=== PATIENT | female | born 1995 | race Caucasian/White ===

== ENCOUNTER 2019-04-20 09:13 | Emergency (ER) | payer OTHER ==
[~2019-04-20] VITALS: Ht 170.2 cm; Wt 79.5 kg
[~2019-04-20 09:13] MED LIST: CEPH500 PO; COMP10 PO; FOLI1 PO; ONDA-104 PO; PNV1TAB.3 PO; PYRI200T10 PO
[2019-04-20] MEDS ORDERED: BUPR150SR PO (09:23)
[2019-04-20] MEDS ORDERED: IPRA4AER IH (09:23)
[2019-04-20] MEDS ORDERED: PRAZ5 PO (09:23)
[2019-04-20] MEDS ORDERED: LITH600 PO (09:23)
[2019-04-20] MEDS ORDERED: ONDANSETRON HCL 4 MG/2 ML VIAL IVP ONE (09:45)
[2019-04-20] MEDS ORDERED: SODIUM CHLORIDE 0.9% 1,000 ML IV ONE (09:45)
[2019-04-20 10:00] LABS: BASOPHILS % (AUTO) 0.3 % (0.0-2.0); EOSINOPHILS % (AUTO) 0.4 % (1.0-6.0); HEMATOCRIT 45.8 % (36-46); HEMOGLOBIN 14.9 g/dL (12.0-16.0); LYMPHOCYTES # (AUTO) 1.6 K/uL (1.0-4.8); LYMPHOCYTES % (AUTO) 14.3 % (22.0-44.0); MEAN CORPUSCULAR HEMOGLOBIN 28.7 pg (26.0-34.0); MEAN CORPUSCULAR HGB CONC 32.6 G/dL (31.0-37.0); MEAN CORPUSCULAR VOLUME 88 fL (80-100); MONOCYTES # (AUTO) 0.6 K/uL (0.1-1.0); MONOCYTES % (AUTO) 5.2 % (2.0-9.0); NEUTROPHILS # (AUTO) 8.8 K/uL (1.8-7.7); NEUTROPHILS % (AUTO) 79.8 % (40.0-70.0); PLATELET COUNT (AUTO) 270 K/uL (150-450); RED CELL DISTRIBUTION WIDTH 14.1 % (11.5-14.5)
[2019-04-20 10:10] LABS: ANION GAP 10 mmol/L (8-16); CALCIUM, TOTAL 10.2 mg/dL (8.8-10.5); CARBON DIOXIDE 28 mmol/L (22-29); CHLORIDE 102 mmol/L (98-107); CREATININE 0.96 mg/dL (0.60-1.30); GLOMERULAR FILTR. RATE CALC > 60 mL/min (>60); GLUCOSE,RANDOM 87 mg/dL (70-110); POTASSIUM 3.9 mmol/L (3.5-5.1); SODIUM SERUM 140 mmol/L (136-145); UREA NITROGEN, BLOOD 10 mg/dL (7-18)
[2019-04-20] MEDS ORDERED: PANTOPRAZOLE SODIUM 40 MG/VIAL IVP ONE (10:15)
[2019-04-20 10:16] LABS: ALANINE AMINOTRANSFERASE 18 U/L (12-78); ALBUMIN 4.7 g/dL (3.4-5.0); ALKALINE PHOSPHATASE 75 U/L (46-116); ASPARTATE AMINOTRANSFERASE 10 U/L (15-37); BILIRUBIN,TOTAL 0.9 mg/dL (0.1-1.0); LIPASE 95 U/L (73-393); TOTAL PROTEIN, SERUM 8.7 g/dL (6.4-8.2)
[2019-04-20 11:36] LABS: APPEARANCE,URINE CLOUDY (CLEAR); BILIRUBIN,URINE NEGATIVE (NEGATIVE); GLUCOSE, URINE (UA) NEGATIVE (NEGATIVE); KETONES,URINE TRACE mg/dL (NEGATIVE); LEUKOCYTE ESTERASE ,URINE LARGE (NEGATIVE); NITRATE,URINE NEGATIVE (NEGATIVE); OCCULT BLOOD,URINE NEGATIVE (NEGATIVE); PROTEIN,URINE TRACE (NEGATIVE)
[2019-04-20 11:45] LABS: RBC,URINE 0-2 /HPF (0-2)
[2019-04-20 11:46] LABS: BACTERIA,URINE Few /HPF (None Seen); SQUAMOUS EPITHELIAL CELL,UR Moderate /LPF (None Seen)
[2019-04-20 12:33] VITALS: BP 120/65
== END 2019-04-20 12:35 | disposition home or self-care (01) ==
LOC: EMS 09:16
DX: K52.9 Noninfective gastroenteritis and colitis, unspecified (principal); N39.0 Urinary tract infection, site not specified; F31.9 Bipolar disorder, unspecified; J45.909 Unspecified asthma, uncomplicated; F12.90 Cannabis use, unspecified, uncomplicated; Z88.8 Allergy status to other drugs, medicaments and biological substances; Z79.899 Other long term (current) drug therapy
CPT/HCPCS: 36415; 74018; 80053; 80178; 81001; 83690; 84703; 85025; 96361; 96374; 96375; 99284; C9113; J2405; J7030

== ENCOUNTER 2019-07-04 08:38 | Emergency (ER) | payer OTHER ==
[~2019-07-04] VITALS: Ht 170.2 cm; Wt 81.5 kg
[~2019-07-04 08:38] MED LIST changes: +BUPR150SR PO; -CEPH500 PO; -COMP10 PO; -FOLI1 PO; +IPRA4AER IH; +LITH600 PO; -ONDA-104 PO; -PNV1TAB.3 PO; +PRAZ5 PO; -PYRI200T10 PO
[2019-07-04] MEDS ORDERED: CEPHALEXIN MONOHYDRATE 500 MG CAPSULE PO ONE (09:00)
[2019-07-04] MEDS ORDERED: IBUPROFEN 600 MG TABLET PO ONE (09:00)
[2019-07-04 09:10] VITALS: BP 133/86
== END 2019-07-04 09:12 | disposition home or self-care (01) ==
LOC: EMS 08:40
DX: H00.014 Hordeolum externum left upper eyelid (principal); J45.909 Unspecified asthma, uncomplicated; F31.9 Bipolar disorder, unspecified; F12.90 Cannabis use, unspecified, uncomplicated; Z90.89 Acquired absence of other organs; Z88.8 Allergy status to other drugs, medicaments and biological substances

== ENCOUNTER 2019-08-17 03:25 | Emergency (ER) | payer OTHER ==
[~2019-08-17] VITALS: Ht 170.2 cm; Wt 84.1 kg
[2019-08-17 04:23] VITALS: BP 140/85
[2019-08-17] MEDS ORDERED: LITH300C3 PO (04:27)
[2019-08-17] MEDS ORDERED: IBUPROFEN 800 MG TABLET PO ONE (04:45)
== END 2019-08-17 04:55 | disposition home or self-care (01) ==
LOC: EMS 03:27
DX: H10.89 Other conjunctivitis (principal); F31.9 Bipolar disorder, unspecified; F41.9 Anxiety disorder, unspecified; J45.909 Unspecified asthma, uncomplicated; F12.90 Cannabis use, unspecified, uncomplicated; Z88.8 Allergy status to other drugs, medicaments and biological substances; Z79.899 Other long term (current) drug therapy

== ENCOUNTER 2019-12-16 05:02 | Emergency (ER) | payer OTHER ==
[~2019-12-16] VITALS: Ht 170.2 cm; Wt 90.9 kg
[~2019-12-16 05:02] MED LIST changes: +LITH300C3 PO; -LITH600 PO
[2019-12-16] MEDS ORDERED: KETOROLAC TROMETHAMINE 30 MG/ML VIAL IVP ONE (06:30)
[2019-12-16] MEDS ORDERED: DICYCLOMINE HCL 10 MG/ML 2 ML AMP IM ONE (06:30)
[2019-12-16] MEDS ORDERED: ONDANSETRON HCL 4 MG/2 ML VIAL IVP ONE (06:30)
[2019-12-16] MEDS ORDERED: SODIUM CHLORIDE 0.9% 1,000 ML IV ONE (06:30)
[2019-12-16 06:41] VITALS: BP 124/75
[2019-12-17] MEDS ORDERED: BUPR75 PO (10:32)
[2019-12-17] MEDS ORDERED: AMOX1TAB15 PO (10:32)
[2019-12-17] MEDS ORDERED: CARB-188 AU (10:32)
[2019-12-17] MEDS ORDERED: IBUP-2271 PO (10:38)
== END 2019-12-16 06:49 | disposition home or self-care (01) ==
LOC: EMS 05:02
DX: H66.91 Otitis media, unspecified, right ear (principal); H60.91 Unspecified otitis externa, right ear

== ENCOUNTER 2019-12-17 10:28 | Emergency (ER) | payer OTHER ==
[~2019-12-17] VITALS: Ht 170.2 cm; Wt 90.9 kg
[~2019-12-17 10:28] MED LIST changes: -LITH300C3 PO
[2019-12-17] MEDS ORDERED: BUPR75 PO (10:32)
[2019-12-17] MEDS ORDERED: CARB-188 AU (10:32)
[2019-12-17] MEDS ORDERED: AMOX1TAB15 PO (10:32)
[2019-12-17] MEDS ORDERED: IBUP-2271 PO (10:38)
[2019-12-17] MEDS ORDERED: ACETAMINOPHEN 500 MG TABLET PO ONE (11:00)
[2019-12-17 11:10] VITALS: BP 129/84
== END 2019-12-17 11:17 | disposition home or self-care (01) ==
LOC: EMS 10:32
DX: H60.91 Unspecified otitis externa, right ear (principal); H66.91 Otitis media, unspecified, right ear; F17.210 Nicotine dependence, cigarettes, uncomplicated; F31.9 Bipolar disorder, unspecified; J45.909 Unspecified asthma, uncomplicated; F12.90 Cannabis use, unspecified, uncomplicated; Z88.8 Allergy status to other drugs, medicaments and biological substances; Z79.899 Other long term (current) drug therapy

== ENCOUNTER 2020-04-11 14:52 | Inpatient (IN) | payer OTHER ==
[~2020-04-11] VITALS: Ht 170.2 cm; Wt 100.5 kg
[~2020-04-11 14:52] MED LIST changes: +AMOX1TAB15 PO; +BUPR75 PO; +CARB-188 AU; +IBUP-2759 PO
[2020-04-11] MEDS ORDERED: ARIP300S3 IM (15:01)
[2020-04-11] MEDS ORDERED: IOVERSOL 350 MG/ML 100 ML VIAL ONE (16:30)
[2020-04-11] MEDS ORDERED: SODIUM CHLORIDE 0.9% 100 ML ONE (16:30)
[2020-04-11 16:34] LABS: BASOPHILS % (AUTO) 0.3 % (0.0-2.0); EOSINOPHILS % (AUTO) 0.8 % (1.0-6.0); HEMATOCRIT 44.1 % (36-46); HEMOGLOBIN 14.7 g/dL (12.0-16.0); LYMPHOCYTES # (AUTO) 1.4 K/uL (1.0-4.8); LYMPHOCYTES % (AUTO) 15.3 % (22.0-44.0); MEAN CORPUSCULAR HEMOGLOBIN 29.6 pg (26.0-34.0); MEAN CORPUSCULAR HGB CONC 33.5 G/dL (31.0-37.0); MEAN CORPUSCULAR VOLUME 88 fL (80-100); MONOCYTES # (AUTO) 0.4 K/uL (0.1-1.0); MONOCYTES % (AUTO) 4.6 % (2.0-9.0); NEUTROPHILS # (AUTO) 7.4 K/uL (1.8-7.7); PLATELET COUNT (AUTO) 254 K/uL (150-450); RED BLOOD CELL COUNT(AUTO) 4.99 MIL/uL (4.00-5.20); RED CELL DISTRIBUTION WIDTH 14.2 % (11.5-14.5)
[2020-04-11 16:38] LABS: APPEARANCE,URINE CLOUDY (CLEAR); BILIRUBIN,URINE NEGATIVE (NEGATIVE); GLUCOSE, URINE (UA) NEGATIVE (NEGATIVE); KETONES,URINE NEGATIVE (NEGATIVE); LEUKOCYTE ESTERASE ,URINE SMALL (NEGATIVE); NITRATE,URINE NEGATIVE (NEGATIVE); OCCULT BLOOD,URINE MODERATE (NEGATIVE); PROTEIN,URINE TRACE (NEGATIVE); UROBILINOGEN,URINE 0.2 mg/dL (<=1.0)
[2020-04-11 16:45] LABS: RBC,URINE 0-2 /HPF (0-2); WBC,URINE 0-2 /HPF (0-5)
[2020-04-11 16:46] LABS: BACTERIA,URINE None Seen /HPF (None Seen); SQUAMOUS EPITHELIAL CELL,UR Many /LPF (None Seen)
[2020-04-11 17:01] LABS: LACTIC ACID 1.6 mmol/L (0.4-2.0)
[2020-04-11 17:02] LABS: ANION GAP 11 mmol/L (8-16); CALCIUM, TOTAL 9.6 mg/dL (8.8-10.5); CARBON DIOXIDE 26 mmol/L (22-29); CHLORIDE 99 mmol/L (98-107); CREATININE 0.99 mg/dL (0.60-1.30); GLOMERULAR FILTR. RATE CALC > 60 mL/min (>60); GLUCOSE,RANDOM 104 mg/dL (70-110); POTASSIUM 3.7 mmol/L (3.5-5.1); SODIUM SERUM 136 mmol/L (136-145); UREA NITROGEN, BLOOD 8 mg/dL (7-18)
[2020-04-11 17:06] LABS: ALANINE AMINOTRANSFERASE 24 U/L (12-78); ALBUMIN 4.3 g/dL (3.4-5.0); ALKALINE PHOSPHATASE 78 U/L (46-116); ASPARTATE AMINOTRANSFERASE 15 U/L (15-37); BILIRUBIN,TOTAL 0.4 mg/dL (0.1-1.0); CREATINE KINASE, TOTAL ONLY 64 U/L (26-192); TOTAL PROTEIN, SERUM 7.8 g/dL (6.4-8.2)
[2020-04-11 17:10] LABS: AMPHET/METH SCREEN,URINE NEGATIVE (NEGATIVE); BARBITURATE SCREEN, URINE NEGATIVE (NEGATIVE); BENZODIAZEPINES SCREEN,URINE NEGATIVE (NEGATIVE); CANNABINOID SCREEN,URINE POSITIVE (NEGATIVE); COCAINE SCREEN,URINE NEGATIVE (NEGATIVE); METHADONE SCREEN, URINE NEGATIVE (NEGATIVE); OPIATE SCREEN,URINE NEGATIVE (NEGATIVE)
[2020-04-11 17:11] LABS: PHENCYCLIDINE SCREEN,URINE NEGATIVE (NEGATIVE)
[2020-04-11 17:23] LABS: INR 0.9 (0.9-1.1)
[2020-04-11 17:26] LABS: ACETAMINOPHEN < 2 mcg/mL (10-30)
[2020-04-11 17:44] LABS: SALICYLATE 1.7 mg/dL (2.8-20.0)
[2020-04-11] MEDS ORDERED: ZIPRASIDONE MESYLATE 20 MG/VIAL IM ONE (18:15)
[2020-04-11 20:31] LABS: SALICYLATE 1.5 mg/dL (2.8-20.0)
[2020-04-11 20:43] LABS: ACETAMINOPHEN < 2 mcg/mL (10-30)
[2020-04-12 00:18] LABS: COVID AG,FIA SOURCE NASOPHARYNGEAL
[2020-04-12 01:00] VITALS: BP 115/71
[2020-04-12] MEDS: LORazepam 2 MG TABLET PO PRN ×2 (01:52→10:15)
[2020-04-12] MEDS: ZOLPIDEM TARTRATE 10 MG TABLET PO PRN (01:52)
[2020-04-12] MEDS ORDERED: INFLUENZA VIRUS VACCINE QVS 2020-21 (6MO+)/PF 60 MCG/0.5 ML SYRINGE IM ONE (02:30)
[2020-04-12] MEDS ORDERED: MAGNESIUM HYDROXIDE SUSPENSION 30 ML UDCUP PO PRN (07:45)
[2020-04-12] MEDS ORDERED: GuaiFENesin/D-METHORPHAN [SUGAR-FREE] 200-20MG/10 ML SYRUP UDCUP PO PRN (07:45)
[2020-04-12] MEDS ORDERED: ACETAMINOPHEN 325 MG TABLET PO PRN (07:45)
[2020-04-12] MEDS ORDERED: NICOTINE 14 MG/24 HOUR PATCH TD PRN (07:45)
[2020-04-12] MEDS ORDERED: ONDANSETRON HCL 4 MG TABLET PO PRN (07:45)
[2020-04-12] MEDS ORDERED: LOPERAMIDE HCL 2 MG CAPSULE PO PRN (07:45)
[2020-04-12] MEDS ORDERED: ALBUTEROL SULFATE HFA 90 MCG/PUFF 8 GM INHALER IH PRN (07:45)
[2020-04-12] MEDS ORDERED: MAG HYDROX/AL HYDROX/SIMETH ES 30 ML SUSPENSION UDCUP PO PRN (07:45)
[2020-04-12] MEDS ORDERED: CloNIDine HCL 0.1 MG TABLET PO PRN (07:45)
[2020-04-12] MEDS ORDERED: DOCUSATE SODIUM 100 MG CAPSULE PO PRN (07:45)
[2020-04-12] MEDS ORDERED: PETROLATUM,WHITE 28 GM JELLY TP PRN (07:45)
[2020-04-12] MEDS: NICOTINE 14 MG/24 HOUR PATCH TD SCH (08:16)
[2020-04-12 09:39] VITALS: BP 135/83
[2020-04-12] MEDS: HALOPERIDOL 5 MG TABLET PO PRN (10:15)
[2020-04-12] MEDS: DIVALPROEX SODIUM 500 MG DR TABLET PO SCH ×2 (13:39→21:00)
[2020-04-12] MEDS: BuPROPion HCL XL 150 MG ER TABLET PO SCH (13:39)
[2020-04-12] MEDS ORDERED: BUPR-93 PO (14:23)
[2020-04-12 16:12] VITALS: BP 108/69
[2020-04-12] MEDS ORDERED: LORazepam 2 MG/ML VIAL IM ONE (18:00)
[2020-04-12] MEDS ORDERED: HALOPERIDOL LACTATE 5 MG/ML VIAL IM ONE (18:00)
[2020-04-12] MEDS ORDERED: DiphenhydrAMINE HCL 50 MG/ML VIAL IM ONE (18:00)
[2020-04-13] MEDS: ZOLPIDEM TARTRATE 10 MG TABLET PO PRN (00:16)
[2020-04-13] MEDS: LORazepam 2 MG TABLET PO PRN ×4 (00:16→18:29)
[2020-04-13 00:17] VITALS: BP 112/73
[2020-04-13 06:37] LABS: CHOL/HDL RATIO 5.5 (3.9-5.7)
[2020-04-13] MEDS: HALOPERIDOL 5 MG TABLET PO PRN ×3 (07:34→18:29)
[2020-04-13] MEDS: BuPROPion HCL XL 150 MG ER TABLET PO SCH (07:34)
[2020-04-13] MEDS: DIVALPROEX SODIUM 500 MG DR TABLET PO SCH ×2 (07:34→21:00)
[2020-04-13] MEDS: NICOTINE 14 MG/24 HOUR PATCH TD SCH (07:35)
[2020-04-13 08:00] VITALS: BP 120/79
[2020-04-13] MEDS: IBUPROFEN 400 MG TABLET PO PRN (08:55)
[2020-04-13] MEDS ORDERED: HALOPERIDOL LACTATE 5 MG/ML VIAL IM ONE (14:15)
[2020-04-13] MEDS ORDERED: LORazepam 2 MG/ML VIAL IM ONE (14:15)
[2020-04-13] MEDS ORDERED: DiphenhydrAMINE HCL 50 MG/ML VIAL IM ONE (14:15)
[2020-04-13 16:02] VITALS: BP 113/75
[2020-04-14] MEDS: LORazepam 2 MG TABLET PO PRN ×2 (07:50→14:39)
[2020-04-14] MEDS: HALOPERIDOL 5 MG TABLET PO PRN ×2 (07:50→14:39)
[2020-04-14] MEDS: NICOTINE 14 MG/24 HOUR PATCH TD SCH (07:50)
[2020-04-14] MEDS: DIVALPROEX SODIUM 500 MG DR TABLET PO SCH ×2 (07:50→20:41)
[2020-04-14] MEDS: BuPROPion HCL XL 150 MG ER TABLET PO SCH (07:50)
[2020-04-14] MEDS: IBUPROFEN 400 MG TABLET PO PRN (07:52)
[2020-04-14 08:07] VITALS: BP 121/75
[2020-04-14] MEDS ORDERED: DiphenhydrAMINE HCL 50 MG/ML VIAL ONE (15:14)
[2020-04-14] MEDS ORDERED: HALOPERIDOL LACTATE 5 MG/ML VIAL ONE (15:15)
[2020-04-14] MEDS ORDERED: ChlorproMAZINE HCL 50 MG/2 ML AMP ONE (15:18)
[2020-04-14] MEDS ORDERED: ChlorproMAZINE HCL 50 MG/2 ML AMP IM ONE (15:30)
[2020-04-14] MEDS ORDERED: DiphenhydrAMINE HCL 50 MG/ML VIAL IM ONE (15:30)
[2020-04-14 16:12] VITALS: BP 133/80
[2020-04-15 08:00] VITALS: BP 96/65
[2020-04-15] MEDS: BuPROPion HCL XL 150 MG ER TABLET PO SCH (08:20)
[2020-04-15] MEDS: DIVALPROEX SODIUM 500 MG DR TABLET PO SCH ×2 (08:20→20:05)
[2020-04-15] MEDS: LORazepam 2 MG TABLET PO PRN ×2 (08:20→14:36)
[2020-04-15] MEDS: HALOPERIDOL 5 MG TABLET PO PRN ×2 (08:20→14:36)
[2020-04-15] MEDS: NICOTINE 14 MG/24 HOUR PATCH TD SCH (08:21)
[2020-04-15] MEDS: IBUPROFEN 400 MG TABLET PO PRN (08:23)
[2020-04-15 16:01] VITALS: BP 120/82
[2020-04-15 20:05] VITALS: BP 117/79
[2020-04-15] MEDS: ZOLPIDEM TARTRATE 10 MG TABLET PO PRN (20:05)
[2020-04-16 08:11] VITALS: BP 122/74
[2020-04-16] MEDS: BuPROPion HCL XL 150 MG ER TABLET PO SCH (08:20)
[2020-04-16] MEDS: DIVALPROEX SODIUM 500 MG DR TABLET PO SCH ×2 (08:20→20:12)
[2020-04-16] MEDS: NICOTINE 14 MG/24 HOUR PATCH TD SCH (08:20)
[2020-04-16] MEDS: LORazepam 2 MG TABLET PO PRN ×3 (08:20→18:07)
[2020-04-16] MEDS: HALOPERIDOL 5 MG TABLET PO PRN ×3 (08:20→18:07)
[2020-04-16 17:01] VITALS: BP 105/69
[2020-04-16] MEDS: ZOLPIDEM TARTRATE 10 MG TABLET PO PRN (20:12)
[2020-04-17] MEDS: BuPROPion HCL XL 150 MG ER TABLET PO SCH (08:36)
[2020-04-17] MEDS: DIVALPROEX SODIUM 500 MG DR TABLET PO SCH ×2 (08:36→20:31)
[2020-04-17] MEDS: NICOTINE 14 MG/24 HOUR PATCH TD SCH (08:42)
[2020-04-17] MEDS: LORazepam 2 MG TABLET PO PRN ×2 (09:41→16:41)
[2020-04-17] MEDS: HALOPERIDOL 5 MG TABLET PO PRN ×2 (09:41→16:41)
[2020-04-17 09:43] VITALS: BP 129/85
[2020-04-17 16:00] VITALS: BP 101/63
[2020-04-17 16:38] VITALS: BP 121/80
[2020-04-18] MEDS: ZOLPIDEM TARTRATE 10 MG TABLET PO PRN ×2 (00:45→21:49)
[2020-04-18 02:01] VITALS: BP 120/77
[2020-04-18] MEDS: BuPROPion HCL XL 150 MG ER TABLET PO SCH (08:01)
[2020-04-18] MEDS: DIVALPROEX SODIUM 500 MG DR TABLET PO SCH ×2 (08:01→21:31)
[2020-04-18] MEDS: NICOTINE 14 MG/24 HOUR PATCH TD SCH (08:02)
[2020-04-18] MEDS: LORazepam 2 MG TABLET PO PRN ×3 (08:03→18:13)
[2020-04-18 08:27] VITALS: BP 133/78
[2020-04-18 16:48] VITALS: BP 108/73
[2020-04-18 18:09] VITALS: BP 120/82
[2020-04-19 08:00] VITALS: BP 110/62
[2020-04-19] MEDS: NICOTINE 14 MG/24 HOUR PATCH TD SCH (08:09)
[2020-04-19] MEDS: DIVALPROEX SODIUM 500 MG DR TABLET PO SCH (08:09)
[2020-04-19] MEDS: BuPROPion HCL XL 150 MG ER TABLET PO SCH (08:10)
[2020-04-19] MEDS ORDERED: DIVA-112 PO (12:32)
[2020-04-19] MEDS ORDERED: ARIP400S IM (12:32)
[2020-04-19] MEDS ORDERED: BUPR-47 PO (12:32)
[2020-04-30] MEDS ORDERED: ARIPiprazole ER SUSPENSION 400 MG VIAL IM SCH (09:00)
== END 2020-04-19 14:45 | disposition home or self-care (01) | DRG 885 ==
LOC: EMS 15:19 → 3EC 04-12 00:05
DX: F31.4 Bipolar disorder, current episode depressed, severe, without psychotic features (principal); F12.10 Cannabis abuse, uncomplicated; F60.3 Borderline personality disorder; J45.909 Unspecified asthma, uncomplicated; G44.209 Tension-type headache, unspecified, not intractable; E78.5 Hyperlipidemia, unspecified; Z79.899 Other long term (current) drug therapy; Z87.891 Personal history of nicotine dependence; Z03.818 Encounter for observation for suspected exposure to other biological agents ruled out
CPT/HCPCS: 70496; 83605; 83735; 87081; 87426; 90686; 93005; 99291; G0480; G0481; J1200; J1630; J2060; J3230; J3486; J7050

== ENCOUNTER 2020-08-30 19:05 | Inpatient (IN) | payer OTHER ==
[~2020-08-30] VITALS: Ht 170.2 cm; Wt 100.0 kg
[~2020-08-30 19:05] MED LIST changes: -AMOX1TAB15 PO; +ARIP400S IM; +BUPR-49 PO; -BUPR150SR PO; -BUPR75 PO; -CARB-188 AU; +DIVA-112 PO; -IBUP-2759 PO; -IPRA4AER IH; -PRAZ5 PO
[2020-08-30] MEDS ORDERED: ZOLPIDEM TARTRATE 10 MG TABLET PO PRN (20:45)
[2020-08-30 21:13] LABS: BASOPHILS % (AUTO) 0.5 % (0.0-2.0); EOSINOPHILS % (AUTO) 0.9 % (1.0-6.0); HEMATOCRIT 40.4 % (36-46); HEMOGLOBIN 13.3 g/dL (12.0-16.0); LYMPHOCYTES # (AUTO) 1.9 K/uL (1.0-4.8); LYMPHOCYTES % (AUTO) 20.6 % (22.0-44.0); MEAN CORPUSCULAR HEMOGLOBIN 28.3 pg (26.0-34.0); MEAN CORPUSCULAR VOLUME 86 fL (80-100); MONOCYTES # (AUTO) 0.4 K/uL (0.1-1.0); MONOCYTES % (AUTO) 4.5 % (2.0-9.0); NEUTROPHILS # (AUTO) 6.8 K/uL (1.8-7.7); NEUTROPHILS % (AUTO) 73.5 % (40.0-70.0); PLATELET COUNT (AUTO) 254 K/uL (150-450); RED BLOOD CELL COUNT(AUTO) 4.71 MIL/uL (4.00-5.20); RED CELL DISTRIBUTION WIDTH 13.6 % (11.5-14.5)
[2020-08-30 21:24] LABS: ANION GAP 14 mmol/L (8-16); CALCIUM, TOTAL 9.5 mg/dL (8.8-10.5); CARBON DIOXIDE 23 mmol/L (22-29); CHLORIDE 100 mmol/L (98-107); CREATININE 0.69 mg/dL (0.60-1.30); GLOMERULAR FILTR. RATE CALC > 60 mL/min (>60); GLUCOSE,RANDOM 78 mg/dL (70-110); POTASSIUM 3.7 mmol/L (3.5-5.1); SODIUM SERUM 137 mmol/L (136-145); UREA NITROGEN, BLOOD 6 mg/dL (7-18)
[2020-08-30 21:31] LABS: ALANINE AMINOTRANSFERASE 20 U/L (12-78); ALBUMIN 4.1 g/dL (3.4-5.0); ALKALINE PHOSPHATASE 71 U/L (46-116); ASPARTATE AMINOTRANSFERASE 12 U/L (15-37); BILIRUBIN,TOTAL 0.3 mg/dL (0.1-1.0); TOTAL PROTEIN, SERUM 7.9 g/dL (6.4-8.2)
[2020-08-30 21:33] LABS: VALPROIC ACID < 3 mcg/mL (50-100)
[2020-08-30 21:40] LABS: APPEARANCE,URINE CLEAR (CLEAR); BILIRUBIN,URINE NEGATIVE (NEGATIVE); GLUCOSE, URINE (UA) NEGATIVE (NEGATIVE); KETONES,URINE NEGATIVE (NEGATIVE); LEUKOCYTE ESTERASE ,URINE NEGATIVE (NEGATIVE); NITRATE,URINE NEGATIVE (NEGATIVE); PROTEIN,URINE NEGATIVE (NEGATIVE); UROBILINOGEN,URINE 0.2 mg/dL (<=1.0)
[2020-08-30 21:45] LABS: AMPHET/METH SCREEN,URINE NEGATIVE (NEGATIVE); BARBITURATE SCREEN, URINE NEGATIVE (NEGATIVE); BENZODIAZEPINES SCREEN,URINE NEGATIVE (NEGATIVE); CANNABINOID SCREEN,URINE POSITIVE (NEGATIVE); COCAINE SCREEN,URINE NEGATIVE (NEGATIVE); METHADONE SCREEN, URINE NEGATIVE (NEGATIVE); OPIATE SCREEN,URINE NEGATIVE (NEGATIVE)
[2020-08-30 21:46] LABS: BACTERIA,URINE None Seen /HPF (None Seen); OCCULT BLOOD,URINE TRACE (NEGATIVE); RBC,URINE 0-2 /HPF (0-2); WBC,URINE None Seen /HPF (0-5)
[2020-08-30 21:47] LABS: SQUAMOUS EPITHELIAL CELL,UR Moderate /LPF (None Seen)
[2020-08-30 21:51] LABS: PHENCYCLIDINE SCREEN,URINE NEGATIVE (NEGATIVE)
[2020-08-30 21:53] LABS: COVID AG,FIA SOURCE NASOPHARYNGEAL
[2020-08-30 22:31] LABS: HCG,QUANTITATIVE < 1 mIU/mL (0-6)
[2020-08-31] MEDS: ONDANSETRON HCL 4 MG TABLET PO PRN ×2 (01:37→11:01)
[2020-08-31 01:40] VITALS: BP 110/83
[2020-08-31] MEDS ORDERED: PNEUMOCOCCAL VACCINE POLYVALENT 0.5 ML VIAL [PPSV23] IM ONE (01:45)
[2020-08-31] MEDS ORDERED: -PHARMACY VACCINE NOTE- MISC ONE (01:45)
[2020-08-31] MEDS ORDERED: MAGNESIUM HYDROXIDE SUSPENSION 30 ML UDCUP PO PRN (07:00)
[2020-08-31] MEDS ORDERED: LOPERAMIDE HCL 2 MG CAPSULE PO PRN (07:00)
[2020-08-31] MEDS ORDERED: CloNIDine HCL 0.1 MG TABLET PO PRN (07:00)
[2020-08-31] MEDS ORDERED: ALBUTEROL SULFATE HFA 90 MCG/PUFF 8 GM INHALER IH PRN (07:00)
[2020-08-31] MEDS ORDERED: ACETAMINOPHEN 325 MG TABLET PO PRN (07:00)
[2020-08-31] MEDS ORDERED: MAG HYDROX/AL HYDROX/SIMETH ES 30 ML SUSPENSION UDCUP PO PRN (07:00)
[2020-08-31] MEDS ORDERED: ONDANSETRON HCL 4 MG TABLET PO PRN (07:00)
[2020-08-31] MEDS ORDERED: GuaiFENesin/D-METHORPHAN [SUGAR-FREE] 200-20MG/10 ML SYRUP UDCUP PO PRN (07:00)
[2020-08-31] MEDS ORDERED: DOCUSATE SODIUM 100 MG CAPSULE PO PRN (07:00)
[2020-08-31] MEDS ORDERED: PETROLATUM,WHITE 28 GM JELLY TP PRN (07:00)
[2020-08-31 08:54] LABS: CHOL/HDL RATIO 4.8 (3.9-5.7)
[2020-08-31 11:00] VITALS: BP 136/94
[2020-08-31] MEDS: LORazepam 2 MG TABLET PO PRN ×2 (11:11→16:39)
[2020-08-31] MEDS: IBUPROFEN 400 MG TABLET PO PRN (11:54)
[2020-08-31] MEDS: HALOPERIDOL 5 MG TABLET PO PRN ×2 (11:59→16:39)
[2020-08-31] MEDS ORDERED: HALOPERIDOL LACTATE 5 MG/ML VIAL ONE (17:06)
[2020-08-31] MEDS ORDERED: LORazepam 2 MG/ML VIAL IM ONE (17:15)
[2020-08-31] MEDS ORDERED: HALOPERIDOL LACTATE 5 MG/ML VIAL IM ONE (17:15)
[2020-08-31] MEDS ORDERED: DiphenhydrAMINE HCL 50 MG/ML VIAL IM ONE (17:15)
[2020-08-31] MEDS: DIVALPROEX SODIUM 500 MG DR TABLET PO SCH (21:00)
[2020-08-31 21:44] VITALS: BP 128/88
[2020-09-01] MEDS: BuPROPion HCL XL 150 MG ER TABLET PO SCH (09:08)
[2020-09-01] MEDS: ARIPiprazole 15 MG TABLET PO SCH (09:08)
[2020-09-01] MEDS: DIVALPROEX SODIUM 500 MG DR TABLET PO SCH ×2 (09:08→20:44)
[2020-09-01] MEDS: LORazepam 2 MG TABLET PO PRN ×2 (09:11→16:06)
[2020-09-01 12:33] VITALS: BP 125/76
[2020-09-01] MEDS ORDERED: DiphenhydrAMINE HCL 50 MG/ML VIAL IM ONE (13:15)
[2020-09-01] MEDS ORDERED: HALOPERIDOL LACTATE 5 MG/ML VIAL IM ONE (13:15)
[2020-09-01] MEDS ORDERED: LORazepam 2 MG/ML VIAL IM ONE (13:15)
[2020-09-01] MEDS: HALOPERIDOL 5 MG TABLET PO PRN (16:06)
[2020-09-01 16:11] VITALS: BP 130/84
[2020-09-02 00:18] VITALS: BP 122/80
[2020-09-02 09:20] VITALS: BP 110/82
[2020-09-02] MEDS: LORazepam 2 MG TABLET PO PRN (09:27)
[2020-09-02] MEDS: ARIPiprazole 15 MG TABLET PO SCH (09:27)
[2020-09-02] MEDS: BuPROPion HCL XL 150 MG ER TABLET PO SCH (09:27)
[2020-09-02] MEDS: DIVALPROEX SODIUM 500 MG DR TABLET PO SCH ×2 (09:27→21:00)
[2020-09-02] MEDS: NICOTINE 14 MG/24 HOUR PATCH TD PRN (13:16)
[2020-09-02 16:24] VITALS: BP 99/51
[2020-09-02] MEDS: ONDANSETRON HCL 4 MG TABLET PO PRN (17:35)
[2020-09-02] MEDS ORDERED: HALOPERIDOL LACTATE 5 MG/ML VIAL IM ONE (18:00)
[2020-09-02] MEDS ORDERED: DiphenhydrAMINE HCL 50 MG/ML VIAL IM ONE (18:00)
[2020-09-02] MEDS ORDERED: LORazepam 2 MG/ML VIAL IM ONE (18:00)
[2020-09-02 18:02] VITALS: BP 164/97
[2020-09-03] VITALS: BP 140/84
[2020-09-03] MEDS: LORazepam 2 MG TABLET PO PRN ×2 (05:37→14:54)
[2020-09-03] MEDS: HALOPERIDOL 5 MG TABLET PO PRN (05:38)
[2020-09-03] MEDS: DIVALPROEX SODIUM 500 MG DR TABLET PO SCH ×2 (08:24→21:00)
[2020-09-03] MEDS: ARIPiprazole 15 MG TABLET PO SCH (08:24)
[2020-09-03] MEDS: BuPROPion HCL XL 150 MG ER TABLET PO SCH (08:24)
[2020-09-03 08:28] VITALS: BP 134/82
[2020-09-03] MEDS ORDERED: HALOPERIDOL LACTATE 5 MG/ML VIAL ONE (09:20)
[2020-09-03] MEDS ORDERED: LORazepam 2 MG/ML VIAL ONE (09:20)
[2020-09-03] MEDS ORDERED: DiphenhydrAMINE HCL 50 MG/ML VIAL ONE (09:21)
[2020-09-03] MEDS ORDERED: LORazepam 2 MG/ML VIAL IM ONE ×2 (09:30→19:15)
[2020-09-03] MEDS ORDERED: DiphenhydrAMINE HCL 50 MG/ML VIAL IM ONE ×2 (09:30→19:15)
[2020-09-03] MEDS ORDERED: HALOPERIDOL LACTATE 5 MG/ML VIAL IM ONE ×2 (09:30→19:15)
[2020-09-03 10:40] VITALS: BP 150/93
[2020-09-04 01:14] VITALS: BP 132/84
[2020-09-04] MEDS: BuPROPion HCL XL 150 MG ER TABLET PO SCH (08:14)
[2020-09-04] MEDS: FOLIC ACID 1 MG TABLET PO SCH (08:14)
[2020-09-04] MEDS: THIAMINE 100 MG TABLET PO SCH (08:14)
[2020-09-04] MEDS: LORazepam 2 MG TABLET PO PRN ×3 (08:15→20:00)
[2020-09-04] MEDS: MULTIVITAMINS WITH MINERALS, THERAPEUTIC TABLET PO SCH (08:15)
[2020-09-04] MEDS: ONDANSETRON HCL 4 MG TABLET PO PRN (08:15)
[2020-09-04] MEDS: ARIPiprazole 15 MG TABLET PO SCH (08:15)
[2020-09-04] MEDS: DIVALPROEX SODIUM 500 MG DR TABLET PO SCH ×2 (08:15→20:55)
[2020-09-04 08:18] VITALS: BP 122/78
[2020-09-04] MEDS ORDERED: ChlorproMAZINE HCL 50 MG/2 ML AMP ONE (09:13)
[2020-09-04] MEDS ORDERED: DiphenhydrAMINE HCL 50 MG/ML VIAL ONE (09:14)
[2020-09-04] MEDS ORDERED: DiphenhydrAMINE HCL 50 MG/ML VIAL IM ONE ×2 (09:15→16:30)
[2020-09-04] MEDS ORDERED: ChlorproMAZINE HCL 50 MG/2 ML AMP IM ONE ×2 (09:15→16:30)
[2020-09-04 09:41] LABS: PHOSPHORUS 2.4 mg/dL (2.5-4.9); POTASSIUM 3.9 mmol/L (3.5-5.1)
[2020-09-04] MEDS: IBUPROFEN 400 MG TABLET PO PRN (14:27)
[2020-09-04] MEDS: HALOPERIDOL 5 MG TABLET PO PRN ×2 (14:27→20:00)
[2020-09-04] MEDS ORDERED: LORazepam 2 MG/ML VIAL IM ONE (16:30)
[2020-09-04 16:38] VITALS: BP 140/84
[2020-09-04] MEDS ORDERED: SODIUM,POTASSIUM PHOSPHATES POWDER PACKET PO ONE (17:15)
[2020-09-05 02:11] VITALS: BP 126/82
[2020-09-05] MEDS ORDERED: MAG HYDROX/AL HYDROX/SIMETH ES 30 ML SUSPENSION UDCUP PO PRN (06:30)
[2020-09-05] MEDS ORDERED: GuaiFENesin/D-METHORPHAN [SUGAR-FREE] 200-20MG/10 ML SYRUP UDCUP PO PRN (06:30)
[2020-09-05] MEDS ORDERED: ACETAMINOPHEN 325 MG TABLET PO PRN (06:30)
[2020-09-05] MEDS ORDERED: IBUPROFEN 400 MG TABLET PO PRN (06:30)
[2020-09-05] MEDS ORDERED: NICOTINE 14 MG/24 HOUR PATCH TD PRN (06:30)
[2020-09-05] MEDS ORDERED: DOCUSATE SODIUM 100 MG CAPSULE PO PRN (06:30)
[2020-09-05] MEDS ORDERED: CloNIDine HCL 0.1 MG TABLET PO PRN (06:30)
[2020-09-05] MEDS ORDERED: LOPERAMIDE HCL 2 MG CAPSULE PO PRN (06:30)
[2020-09-05] MEDS ORDERED: MAGNESIUM HYDROXIDE SUSPENSION 30 ML UDCUP PO PRN (06:30)
[2020-09-05] MEDS ORDERED: PETROLATUM,WHITE 28 GM JELLY TP PRN (06:30)
[2020-09-05] MEDS ORDERED: ALBUTEROL SULFATE HFA 90 MCG/PUFF 8 GM INHALER IH PRN (06:30)
[2020-09-05] MEDS ORDERED: ONDANSETRON HCL 4 MG TABLET PO PRN (06:30)
[2020-09-05] MEDS: ARIPiprazole 15 MG TABLET PO SCH (09:29)
[2020-09-05] MEDS: FOLIC ACID 1 MG TABLET PO SCH (09:30)
[2020-09-05] MEDS: BuPROPion HCL XL 150 MG ER TABLET PO SCH (09:30)
[2020-09-05] MEDS: DIVALPROEX SODIUM 500 MG DR TABLET PO SCH (09:30)
[2020-09-05] MEDS: MULTIVITAMINS WITH MINERALS, THERAPEUTIC TABLET PO SCH (09:30)
[2020-09-05] MEDS: THIAMINE 100 MG TABLET PO SCH (09:40)
[2020-09-05] MEDS: LORazepam 2 MG TABLET PO PRN (09:41)
[2020-09-05] MEDS: NICOTINE 14 MG/24 HOUR PATCH TD PRN (09:41)
[2020-09-05 12:46] VITALS: BP 128/89
[2020-09-05] MEDS ORDERED: BUPR-93 PO (13:04)
== END 2020-09-05 13:30 | disposition home or self-care (01) | DRG 885 ==
LOC: EMS 19:05 → B3A 22:00
PROVIDERS: ADMIT Psychiatry & Neurology Child & Adolescent Psychiatry; ATTEND Psychiatry & Neurology Child & Adolescent Psychiatry
DX: F31.4 Bipolar disorder, current episode depressed, severe, without psychotic features (principal); F10.10 Alcohol abuse, uncomplicated; F60.3 Borderline personality disorder; Z87.891 Personal history of nicotine dependence; J45.909 Unspecified asthma, uncomplicated; I10 Essential (primary) hypertension; S81.812A Laceration without foreign body, left lower leg, initial encounter; X78.9XXA Intentional self-harm by unspecified sharp object, initial encounter; Z20.822 Contact with and (suspected) exposure to COVID-19; Z28.21 Immunization not carried out because of patient refusal
CPT/HCPCS: 83735; 84100; 84132; 87426; 99285; G0480; J1200; J1630; J2060; J3230; Q0162

== ENCOUNTER 2020-12-06 22:44 | Inpatient (IN) | payer OTHER ==
[~2020-12-06] VITALS: Ht 165.1 cm; Wt 94.8 kg
[~2020-12-06 22:44] MED LIST changes: -ARIP400S IM; +BUPR-93 PO
[2020-12-06 23:12] LABS: BASOPHILS % (AUTO) 0.3 % (0.0-2.0); EOSINOPHILS % (AUTO) 0.1 % (1.0-6.0); HEMOGLOBIN 13.4 g/dL (12.0-16.0); LYMPHOCYTES # (AUTO) 1.5 K/uL (1.0-4.8); LYMPHOCYTES % (AUTO) 18.5 % (22.0-44.0); MEAN CORPUSCULAR HEMOGLOBIN 29.1 pg (26.0-34.0); MEAN CORPUSCULAR HGB CONC 33.5 G/dL (31.0-37.0); MEAN CORPUSCULAR VOLUME 87 fL (80-100); MONOCYTES # (AUTO) 0.5 K/uL (0.1-1.0); MONOCYTES % (AUTO) 5.6 % (2.0-9.0); NEUTROPHILS # (AUTO) 6.3 K/uL (1.8-7.7); NEUTROPHILS % (AUTO) 75.5 % (40.0-70.0); PLATELET COUNT (AUTO) 331 K/uL (150-450); RED BLOOD CELL COUNT(AUTO) 4.61 MIL/uL (4.00-5.20); RED CELL DISTRIBUTION WIDTH 14.8 % (11.5-14.5)
[2020-12-06 23:13] LABS: COVID AG,FIA SOURCE NASOPHARYNGEAL
[2020-12-06 23:22] LABS: ANION GAP 12 mmol/L (8-16); CARBON DIOXIDE 25 mmol/L (22-29); CHLORIDE 101 mmol/L (98-107); CREATININE 0.79 mg/dL (0.60-1.30); GLOMERULAR FILTR. RATE CALC > 60 mL/min (>60); GLUCOSE,RANDOM 98 mg/dL (70-110); POTASSIUM 4.1 mmol/L (3.5-5.1); SODIUM SERUM 138 mmol/L (136-145); UREA NITROGEN, BLOOD 8 mg/dL (7-18)
[2020-12-06 23:35] LABS: ALANINE AMINOTRANSFERASE 18 U/L (12-78); ALBUMIN 3.7 g/dL (3.4-5.0); ALKALINE PHOSPHATASE 66 U/L (46-116); ASPARTATE AMINOTRANSFERASE 13 U/L (15-37); BILIRUBIN,TOTAL 0.3 mg/dL (0.1-1.0); HCG,QUANTITATIVE < 1 mIU/mL (0-6); TOTAL PROTEIN, SERUM 7.4 g/dL (6.4-8.2)
[2020-12-06 23:36] LABS: ACETAMINOPHEN < 2 mcg/mL (10-30); VALPROIC ACID < 3 mcg/mL (50-100)
[2020-12-07] MEDS ORDERED: LORazepam 2 MG/ML VIAL IM ONE (01:15)
[2020-12-07] MEDS ORDERED: HALOPERIDOL LACTATE 5 MG/ML VIAL IM ONE (01:15)
[2020-12-07 01:36] LABS: APPEARANCE,URINE CLEAR (CLEAR); BILIRUBIN,URINE NEGATIVE (NEGATIVE); GLUCOSE, URINE (UA) NEGATIVE (NEGATIVE); KETONES,URINE NEGATIVE (NEGATIVE); LEUKOCYTE ESTERASE ,URINE NEGATIVE (NEGATIVE); NITRATE,URINE NEGATIVE (NEGATIVE); OCCULT BLOOD,URINE NEGATIVE (NEGATIVE); PROTEIN,URINE NEGATIVE (NEGATIVE); UROBILINOGEN,URINE 0.2 mg/dL (<=1.0)
[2020-12-07 01:44] LABS: AMPHET/METH SCREEN,URINE NEGATIVE (NEGATIVE); BARBITURATE SCREEN, URINE NEGATIVE (NEGATIVE); BENZODIAZEPINES SCREEN,URINE NEGATIVE (NEGATIVE); CANNABINOID SCREEN,URINE POSITIVE (NEGATIVE); COCAINE SCREEN,URINE NEGATIVE (NEGATIVE); METHADONE SCREEN, URINE NEGATIVE (NEGATIVE); OPIATE SCREEN,URINE NEGATIVE (NEGATIVE)
[2020-12-07 01:45] LABS: PHENCYCLIDINE SCREEN,URINE NEGATIVE (NEGATIVE)
[2020-12-07] MEDS: LORazepam 2 MG TABLET PO PRN (13:02)
[2020-12-07] MEDS: HALOPERIDOL 5 MG TABLET PO PRN (13:02)
[2020-12-07 13:29] VITALS: BP 124/91
[2020-12-07 14:21] VITALS: BP 124/91
[2020-12-07] MEDS ORDERED: PNEUMOCOCCAL VACCINE POLYVALENT 0.5 ML VIAL [PPSV23] IM. ONE (14:45)
[2020-12-07 20:31] VITALS: BP 117/66
[2020-12-08 04:30] VITALS: BP 120/73
[2020-12-08] MEDS ORDERED: MAG HYDROX/AL HYDROX/SIMETH ES 30 ML SUSPENSION UDCUP PO PRN (07:30)
[2020-12-08] MEDS ORDERED: MAGNESIUM HYDROXIDE SUSPENSION 30 ML UDCUP PO PRN (07:30)
[2020-12-08] MEDS ORDERED: CloNIDine HCL 0.1 MG TABLET PO PRN (07:30)
[2020-12-08] MEDS ORDERED: IBUPROFEN 400 MG TABLET PO PRN (07:30)
[2020-12-08] MEDS ORDERED: ACETAMINOPHEN 325 MG TABLET PO PRN (07:30)
[2020-12-08] MEDS ORDERED: LOPERAMIDE HCL 2 MG CAPSULE PO PRN (07:30)
[2020-12-08] MEDS ORDERED: GuaiFENesin/D-METHORPHAN [SUGAR-FREE] 200-20MG/10 ML SYRUP UDCUP PO PRN (07:30)
[2020-12-08] MEDS ORDERED: ALBUTEROL SULFATE HFA 90 MCG/PUFF 8 GM INHALER IH PRN (07:30)
[2020-12-08] MEDS ORDERED: DOCUSATE SODIUM 100 MG CAPSULE PO PRN (07:30)
[2020-12-08] MEDS ORDERED: PETROLATUM,WHITE 28 GM JELLY TP PRN (07:30)
[2020-12-08] MEDS ORDERED: ONDANSETRON HCL 4 MG TABLET PO PRN (07:30)
[2020-12-08 08:08] LABS: CHOL/HDL RATIO 5.1 (3.9-5.7)
[2020-12-08 08:15] VITALS: BP 126/69
[2020-12-08] MEDS ORDERED: LORazepam 2 MG/ML VIAL IM ONE (10:00)
[2020-12-08] MEDS ORDERED: DiphenhydrAMINE HCL 50 MG/ML VIAL IM ONE (10:00)
[2020-12-08] MEDS ORDERED: HALOPERIDOL LACTATE 5 MG/ML VIAL IM ONE (10:00)
[2020-12-08] MEDS: HALOPERIDOL 5 MG TABLET PO PRN ×3 (15:45→18:38)
[2020-12-08] MEDS: LORazepam 2 MG TABLET PO PRN ×3 (15:45→16:10)
[2020-12-08 16:12] VITALS: BP 120/69
[2020-12-09 00:32] VITALS: BP 117/74
[2020-12-09] MEDS: LORazepam 2 MG TABLET PO PRN ×3 (04:29→19:37)
[2020-12-09] MEDS: OLANZapine 10 MG TABLET PO SCH ×2 (08:33→20:12)
[2020-12-09 08:35] VITALS: BP 112/59
[2020-12-09] MEDS ORDERED: HALOPERIDOL LACTATE 5 MG/ML VIAL IM ONE (13:45)
[2020-12-09] MEDS ORDERED: DiphenhydrAMINE HCL 50 MG/ML VIAL IM ONE (13:45)
[2020-12-09] MEDS ORDERED: LORazepam 2 MG/ML VIAL IM ONE (13:45)
[2020-12-10 05:30] VITALS: BP 122/68
[2020-12-10] MEDS: OLANZapine 10 MG TABLET PO SCH ×2 (08:19→20:15)
[2020-12-10] MEDS: LORazepam 2 MG TABLET PO PRN ×3 (08:19→19:57)
[2020-12-10] MEDS ORDERED: LORazepam 2 MG/ML VIAL ONE (10:22)
[2020-12-10] MEDS ORDERED: HALOPERIDOL LACTATE 5 MG/ML VIAL ONE (10:23)
[2020-12-10] MEDS ORDERED: DiphenhydrAMINE HCL 50 MG/ML VIAL ONE (10:23)
[2020-12-10 11:30] VITALS: BP 90/59
[2020-12-10] MEDS ORDERED: LORazepam 2 MG/ML VIAL IM ONE (11:30)
[2020-12-10] MEDS ORDERED: DiphenhydrAMINE HCL 50 MG/ML VIAL IM ONE (11:30)
[2020-12-10] MEDS ORDERED: HALOPERIDOL LACTATE 5 MG/ML VIAL IM ONE (11:30)
[2020-12-10 16:21] VITALS: BP 122/81
[2020-12-10] MEDS: NICOTINE 14 MG/24 HOUR PATCH TD PRN (19:33)
[2020-12-10] MEDS: HALOPERIDOL 5 MG TABLET PO PRN (19:57)
[2020-12-11 04:05] VITALS: BP 107/71
[2020-12-11] MEDS: OLANZapine 10 MG TABLET PO SCH ×2 (08:13→20:04)
[2020-12-11] MEDS: LORazepam 2 MG TABLET PO PRN (08:13)
[2020-12-11] MEDS: HALOPERIDOL 5 MG TABLET PO PRN (08:13)
[2020-12-11 16:04] VITALS: BP 116/81
[2020-12-11] MEDS: NICOTINE 14 MG/24 HOUR PATCH TD PRN (20:20)
[2020-12-11] MEDS: ZOLPIDEM TARTRATE 10 MG TABLET PO PRN (20:47)
[2020-12-12 08:10] VITALS: BP 112/64
[2020-12-12] MEDS: OLANZapine 10 MG TABLET PO SCH ×2 (08:33→20:02)
[2020-12-12] MEDS: LORazepam 2 MG TABLET PO PRN ×3 (11:01→22:36)
[2020-12-12 16:06] VITALS: BP 115/73
[2020-12-12] MEDS: ZOLPIDEM TARTRATE 10 MG TABLET PO PRN (20:02)
[2020-12-13 00:52] VITALS: BP 121/73
[2020-12-13 08:02] VITALS: BP 120/74
[2020-12-13] MEDS: LORazepam 2 MG TABLET PO PRN ×2 (08:07→17:23)
[2020-12-13] MEDS: OLANZapine 10 MG TABLET PO SCH ×2 (08:07→19:18)
[2020-12-13] MEDS: NICOTINE 14 MG/24 HOUR PATCH TD PRN (10:20)
[2020-12-13] MEDS: HALOPERIDOL 5 MG TABLET PO PRN ×2 (10:27→17:52)
[2020-12-13 16:12] VITALS: BP 114/75
[2020-12-13] MEDS ORDERED: ChlorproMAZINE HCL 50 MG/2 ML AMP IM ONE (18:30)
[2020-12-13] MEDS ORDERED: DiphenhydrAMINE HCL 50 MG/ML VIAL IM ONE (18:30)
[2020-12-13] MEDS ORDERED: LORazepam 2 MG/ML VIAL IM ONE (18:30)
[2020-12-13] MEDS: ZOLPIDEM TARTRATE 10 MG TABLET PO PRN (20:31)
[2020-12-14] MEDS: OLANZapine 10 MG TABLET PO SCH ×2 (09:05→20:24)
[2020-12-14 16:08] VITALS: BP 100/70
[2020-12-14] MEDS: LORazepam 2 MG TABLET PO PRN (18:00)
[2020-12-15] MEDS: ZOLPIDEM TARTRATE 10 MG TABLET PO PRN ×2 (01:13→20:06)
[2020-12-15] MEDS: LORazepam 2 MG TABLET PO PRN ×3 (01:13→16:43)
[2020-12-15 01:46] VITALS: BP 102/68
[2020-12-15 08:14] VITALS: BP 117/76
[2020-12-15] MEDS: OLANZapine 10 MG TABLET PO SCH ×2 (09:10→20:11)
[2020-12-15 16:24] VITALS: BP 128/71
[2020-12-15] MEDS: HALOPERIDOL 5 MG TABLET PO PRN (20:48)
[2020-12-16 00:07] VITALS: BP 133/82
[2020-12-16 08:25] VITALS: BP 111/70
[2020-12-16] MEDS: OLANZapine 10 MG TABLET PO SCH ×2 (08:27→20:18)
[2020-12-16 16:35] VITALS: BP 113/77
[2020-12-16] MEDS: HALOPERIDOL 5 MG TABLET PO PRN (17:42)
[2020-12-16] MEDS: LORazepam 2 MG TABLET PO PRN (17:42)
[2020-12-17 05:01] VITALS: BP 116/76
[2020-12-17 08:20] VITALS: BP 103/64
[2020-12-17] MEDS: OLANZapine 10 MG TABLET PO SCH ×2 (08:22→20:57)
[2020-12-17 11:55] VITALS: BP 110/70
[2020-12-17] MEDS: LORazepam 2 MG TABLET PO PRN ×3 (11:58→20:59)
[2020-12-17] MEDS: HALOPERIDOL 5 MG TABLET PO PRN (16:21)
[2020-12-17 16:28] VITALS: BP 107/68
[2020-12-18 05:42] VITALS: BP 110/69
[2020-12-18] MEDS: LORazepam 2 MG TABLET PO PRN ×3 (08:26→16:49)
[2020-12-18] MEDS: OLANZapine 10 MG TABLET PO SCH ×2 (08:26→20:05)
[2020-12-18 10:23] VITALS: BP 107/70
[2020-12-18] MEDS: HALOPERIDOL 5 MG TABLET PO PRN ×2 (12:16→18:03)
[2020-12-18 16:07] VITALS: BP 108/60
[2020-12-18] MEDS: ZOLPIDEM TARTRATE 10 MG TABLET PO PRN (20:05)
[2020-12-19 06:03] VITALS: BP 110/76
[2020-12-19] MEDS: OLANZapine 10 MG TABLET PO SCH ×2 (07:50→20:05)
[2020-12-19 08:23] VITALS: BP 102/71
[2020-12-19] MEDS: LORazepam 2 MG TABLET PO PRN ×2 (12:20→17:30)
[2020-12-19] MEDS: HALOPERIDOL 5 MG TABLET PO PRN (14:16)
[2020-12-19 16:07] VITALS: BP 119/77
[2020-12-19] MEDS: ZOLPIDEM TARTRATE 10 MG TABLET PO PRN (20:04)
[2020-12-20 04:11] VITALS: BP 119/78
[2020-12-20 08:15] VITALS: BP 100/61
[2020-12-20] MEDS: OLANZapine 10 MG TABLET PO SCH ×2 (08:18→20:42)
[2020-12-20] MEDS: LORazepam 2 MG TABLET PO PRN ×3 (08:19→17:47)
[2020-12-20 16:08] VITALS: BP 101/60
[2020-12-20] MEDS: HALOPERIDOL 5 MG TABLET PO PRN (17:47)
[2020-12-20] MEDS: ZOLPIDEM TARTRATE 10 MG TABLET PO PRN (20:42)
[2020-12-21 05:55] VITALS: BP 110/74
[2020-12-21 08:13] VITALS: BP 112/65
[2020-12-21] MEDS: LORazepam 2 MG TABLET PO PRN (08:18)
[2020-12-21] MEDS: OLANZapine 10 MG TABLET PO SCH (08:18)
[2020-12-21] MEDS ORDERED: OLAN10TA74 PO (14:52)
== END 2020-12-21 15:36 | disposition home or self-care (01) | DRG 885 ==
LOC: EMS 22:48 → B3A 12-07 09:58
PROVIDERS: ADMIT Psychiatry & Neurology Child & Adolescent Psychiatry; ATTEND Psychiatry & Neurology Child & Adolescent Psychiatry
DX: F25.0 Schizoaffective disorder, bipolar type (principal); R45.851 Suicidal ideations; E78.5 Hyperlipidemia, unspecified; I10 Essential (primary) hypertension; J45.909 Unspecified asthma, uncomplicated; F60.3 Borderline personality disorder; F41.9 Anxiety disorder, unspecified; R06.4 Hyperventilation; Z20.822 Contact with and (suspected) exposure to COVID-19; F19.10 Other psychoactive substance abuse, uncomplicated; F12.10 Cannabis abuse, uncomplicated
CPT/HCPCS: 51702; 80053; 80061; 80164; 81003; 84702; 85025; 90732; 93005; 99285; G0480; G0481; J1200; J1630; J2060; J3230

== ENCOUNTER 2020-12-07 14:54 | Emergency (ER) | payer OTHER ==
[~2020-12-07] VITALS: Ht 170.2 cm; Wt 90.9 kg
[2020-12-07 15:22] VITALS: BP 112/74
== END 2020-12-07 18:33 | disposition home or self-care (01) ==
LOC: EMS 15:00
DX: S60.222A Contusion of left hand, initial encounter (principal); W22.01XA Walked into wall, initial encounter; Y93.89 Activity, other specified; Y92.89 Other specified places as the place of occurrence of the external cause; Y99.8 Other external cause status
CPT/HCPCS: 99283

== ENCOUNTER 2021-01-31 21:56 | Emergency (ER) | payer OTHER ==
[~2021-01-31] VITALS: Ht 167.6 cm; Wt 95.5 kg
[~2021-01-31 21:56] MED LIST changes: -BUPR-49 PO; -BUPR-93 PO; -DIVA-112 PO; +OLAN10TA74 PO
[2021-02-01] MEDS ORDERED: SODIUM CHLORIDE 0.9% 1,000 ML IV ONE
[2021-02-01 00:32] LABS: BASOPHILS % (AUTO) 0.6 % (0.0-2.0); EOSINOPHILS % (AUTO) 0.9 % (1.0-6.0); HEMATOCRIT 42.1 % (36-46); HEMOGLOBIN 13.9 g/dL (12.0-16.0); LYMPHOCYTES # (AUTO) 2.3 K/uL (1.0-4.8); LYMPHOCYTES % (AUTO) 16.2 % (22.0-44.0); MEAN CORPUSCULAR HEMOGLOBIN 28.8 pg (26.0-34.0); MEAN CORPUSCULAR HGB CONC 33.1 G/dL (31.0-37.0); MEAN CORPUSCULAR VOLUME 87 fL (80-100); MONOCYTES # (AUTO) 0.7 K/uL (0.1-1.0); MONOCYTES % (AUTO) 4.8 % (2.0-9.0); NEUTROPHILS # (AUTO) 10.8 K/uL (1.8-7.7); NEUTROPHILS % (AUTO) 77.5 % (40.0-70.0); RED BLOOD CELL COUNT(AUTO) 4.85 MIL/uL (4.00-5.20); RED CELL DISTRIBUTION WIDTH 13.9 % (11.5-14.5)
[2021-02-01 00:40] LABS: CALCIUM, TOTAL 9.4 mg/dL (8.8-10.5); CARBON DIOXIDE 19 mmol/L (22-29); CHLORIDE 103 mmol/L (98-107); CREATININE 0.64 mg/dL (0.60-1.30); GLOMERULAR FILTR. RATE CALC > 60 mL/min (>60); GLUCOSE,RANDOM 97 mg/dL (70-110); POTASSIUM 3.6 mmol/L (3.5-5.1); UREA NITROGEN, BLOOD 9 mg/dL (7-18)
[2021-02-01 00:52] LABS: ALANINE AMINOTRANSFERASE 19 U/L (12-78); ALBUMIN 4.1 g/dL (3.4-5.0); ALKALINE PHOSPHATASE 76 U/L (46-116); ANION GAP 15 mmol/L (8-16); ASPARTATE AMINOTRANSFERASE 16 U/L (15-37); BILIRUBIN,TOTAL 0.7 mg/dL (0.1-1.0); CREATINE KINASE, TOTAL ONLY 53 U/L (26-192); HCG,QUANTITATIVE < 1 mIU/mL (0-6); LIPASE 50 U/L (73-393); SODIUM SERUM 137 mmol/L (136-145); TOTAL PROTEIN, SERUM 7.4 g/dL (6.4-8.2)
[2021-02-01 01:13] LABS: PLATELET COUNT (AUTO) 274 K/uL (150-450)
[2021-02-01 01:19] LABS: APPEARANCE,URINE CLOUDY (CLEAR); BILIRUBIN,URINE NEGATIVE (NEGATIVE); GLUCOSE, URINE (UA) NEGATIVE (NEGATIVE); KETONES,URINE 40 mg/dL (NEGATIVE); LEUKOCYTE ESTERASE ,URINE SMALL (NEGATIVE); NITRATE,URINE NEGATIVE (NEGATIVE); OCCULT BLOOD,URINE TRACE (NEGATIVE); PROTEIN,URINE POS 1+ (NEGATIVE); UROBILINOGEN,URINE 0.2 mg/dL (<=1.0)
[2021-02-01 01:30] LABS: SQUAMOUS EPITHELIAL CELL,UR Many /LPF (None Seen)
[2021-02-01 01:34] LABS: RBC,URINE 0-2 /HPF (0-2)
[2021-02-01 01:35] LABS: BACTERIA,URINE Few /HPF (None Seen)
[2021-02-01 01:39] LABS: ABG A-A DIFF O2 26.2 mmHg (10-20.0); ABG BASE EXCESS -5.7 mmol/L (-2.0-3.0); ABG CARBOXYHEMOGLOBIN 0.4 % (0.0-3.0); ABG HCO3 20.7 mmol/L (22.0-26.0); ABG METHEMOGLOBIN 0.2 % (0.0-1.5); ABG OXYGEN SATURATION 96.7 % (95.0-98.0); ABG OXYHEMOGLOBIN 96.1 % (94.0-100.0); ABG PCO2 31 mmHg (35-45); ABG PH 7.407 (7.350-7.450); ABG TOTAL HEMOGLOBIN 13.3 G/dL (12.0-18.0); PO2, ARTERIAL BG 86.5 mmHg (80.0-100.0); SOURCE, BLOOD GAS ARTERIAL; TEMPERATURE, FAHRENHEIT, BG 98.7 FAHREN (96.0-98.6)
[2021-02-01 01:40] LABS: O2 DEVICE,BLOOD GAS ROOM AIR (ROOM AIR); SITE, BLOOD GAS LFT RADIAL
[2021-02-01] MEDS ORDERED: ONDANSETRON HCL 4 MG/2 ML VIAL IVP ONE ×2 (03:00)
[2021-02-01 03:23] LABS: AMPHET/METH SCREEN,URINE NEGATIVE (NEGATIVE); BARBITURATE SCREEN, URINE NEGATIVE (NEGATIVE); BENZODIAZEPINES SCREEN,URINE NEGATIVE (NEGATIVE); CANNABINOID SCREEN,URINE POSITIVE (NEGATIVE); COCAINE SCREEN,URINE NEGATIVE (NEGATIVE); METHADONE SCREEN, URINE NEGATIVE (NEGATIVE); OPIATE SCREEN,URINE NEGATIVE (NEGATIVE)
[2021-02-01 03:24] LABS: PHENCYCLIDINE SCREEN,URINE NEGATIVE (NEGATIVE)
[2021-02-01] MEDS ORDERED: LORazepam 2 MG/ML VIAL IVP ONE ×2 (03:45→05:30)
[2021-02-01] MEDS ORDERED: IOHEXOL 350 MG/ML 100 ML VIAL ONE (04:54)
[2021-02-01] MEDS ORDERED: KETOROLAC TROMETHAMINE 30 MG/ML VIAL IVP ONE (05:45)
[2021-02-01] MEDS ORDERED: METOCLOPRAMIDE HCL 5 MG/ML 2 ML VIAL IVP ONE (05:45)
[2021-02-01] MEDS ORDERED: DiphenhydrAMINE HCL 50 MG/ML VIAL IVP ONE (05:45)
[2021-02-01 08:27] VITALS: BP 148/74
== END 2021-02-01 09:29 | disposition home or self-care (01) ==
LOC: EMS 22:00
DX: R10.11 Right upper quadrant pain (principal); R11.2 Nausea with vomiting, unspecified; F12.90 Cannabis use, unspecified, uncomplicated; J45.909 Unspecified asthma, uncomplicated; F31.9 Bipolar disorder, unspecified; F20.9 Schizophrenia, unspecified; F17.210 Nicotine dependence, cigarettes, uncomplicated; Z90.89 Acquired absence of other organs; Z88.8 Allergy status to other drugs, medicaments and biological substances
CPT/HCPCS: 36415; 36600; 74177; 76705; 80053; 80307; 81001; 82550; 82805; 83690; 83735; 84702; 85025; 96361; 96374; 96375; 96376; 99285; A9575; J1200; J1885; J2060; J2405; J2765; J7030

== ENCOUNTER 2021-02-02 00:40 | Emergency (ER) | payer OTHER ==
[~2021-02-02] VITALS: Ht 167.6 cm; Wt 95.5 kg
[2021-02-02 01:42] LABS: BASOPHILS % (AUTO) 0.3 % (0.0-2.0); EOSINOPHILS % (AUTO) 0.2 % (1.0-6.0); HEMATOCRIT 40.4 % (36-46); HEMOGLOBIN 13.3 g/dL (12.0-16.0); LYMPHOCYTES # (AUTO) 1.8 K/uL (1.0-4.8); LYMPHOCYTES % (AUTO) 20.4 % (22.0-44.0); MEAN CORPUSCULAR HEMOGLOBIN 28.9 pg (26.0-34.0); MEAN CORPUSCULAR HGB CONC 32.8 G/dL (31.0-37.0); MEAN CORPUSCULAR VOLUME 88 fL (80-100); MONOCYTES # (AUTO) 0.4 K/uL (0.1-1.0); MONOCYTES % (AUTO) 4.5 % (2.0-9.0); NEUTROPHILS # (AUTO) 6.6 K/uL (1.8-7.7); NEUTROPHILS % (AUTO) 74.6 % (40.0-70.0); PLATELET COUNT (AUTO) 293 K/uL (150-450); RED BLOOD CELL COUNT(AUTO) 4.59 MIL/uL (4.00-5.20); RED CELL DISTRIBUTION WIDTH 13.7 % (11.5-14.5)
[2021-02-02 01:46] LABS: ANION GAP 9 mmol/L (8-16); CALCIUM, TOTAL 8.8 mg/dL (8.8-10.5); CARBON DIOXIDE 25 mmol/L (22-29); CHLORIDE 104 mmol/L (98-107); CREATININE 0.74 mg/dL (0.60-1.30); GLOMERULAR FILTR. RATE CALC > 60 mL/min (>60); GLUCOSE,RANDOM 102 mg/dL (70-110); POTASSIUM 3.7 mmol/L (3.5-5.1); SODIUM SERUM 138 mmol/L (136-145); UREA NITROGEN, BLOOD 6 mg/dL (7-18)
[2021-02-02 01:59] LABS: ALANINE AMINOTRANSFERASE 17 U/L (12-78); ALBUMIN 3.8 g/dL (3.4-5.0); ALKALINE PHOSPHATASE 69 U/L (46-116); ASPARTATE AMINOTRANSFERASE 11 U/L (15-37); BILIRUBIN,TOTAL 0.5 mg/dL (0.1-1.0); HCG,QUANTITATIVE < 1 mIU/mL (0-6); LIPASE 43 U/L (73-393); TOTAL PROTEIN, SERUM 7.3 g/dL (6.4-8.2)
[2021-02-02] MEDS ORDERED: SODIUM CHLORIDE 0.9% 1,000 ML IV ONE (02:00)
[2021-02-02] MEDS ORDERED: ONDANSETRON HCL 4 MG/2 ML VIAL IVP ONE (02:00)
[2021-02-02 05:37] VITALS: BP 127/82
== END 2021-02-02 05:50 | disposition home or self-care (01) ==
LOC: EMS 00:42
DX: R11.2 Nausea with vomiting, unspecified (principal); R10.13 Epigastric pain; J45.909 Unspecified asthma, uncomplicated; F31.9 Bipolar disorder, unspecified; F20.9 Schizophrenia, unspecified; F17.210 Nicotine dependence, cigarettes, uncomplicated; F12.90 Cannabis use, unspecified, uncomplicated
CPT/HCPCS: 80053; 83690; 84702; 85025; 96361; 96374; 99285; J2405; J7030

== ENCOUNTER 2021-05-17 22:10 | Emergency (ER) | payer OTHER ==
[~2021-05-17] VITALS: Ht 167.6 cm; Wt 86.4 kg
[2021-05-17 23:06] LABS: BASOPHILS % (AUTO) 0.7 % (0.0-2.0); EOSINOPHILS % (AUTO) 2.2 % (1.0-6.0); HEMATOCRIT 42.8 % (36-46); HEMOGLOBIN 13.9 g/dL (12.0-16.0); LYMPHOCYTES % (AUTO) 21.3 % (22.0-44.0); MEAN CORPUSCULAR HEMOGLOBIN 27.8 pg (26.0-34.0); MEAN CORPUSCULAR HGB CONC 32.5 G/dL (31.0-37.0); MEAN CORPUSCULAR VOLUME 86 fL (80-100); MONOCYTES # (AUTO) 0.5 K/uL (0.1-1.0); MONOCYTES % (AUTO) 5.7 % (2.0-9.0); NEUTROPHILS # (AUTO) 6.4 K/uL (1.8-7.7); NEUTROPHILS % (AUTO) 70.1 % (40.0-70.0); PLATELET COUNT (AUTO) 262 K/uL (150-450)
[2021-05-17] MEDS ORDERED: ONDANSETRON HCL 4 MG TABLET PO ONE (23:15)
[2021-05-17] MEDS ORDERED: LORazepam 2 MG TABLET PO ONE (23:15)
[2021-05-17 23:16] LABS: ANION GAP 9 mmol/L (8-16); CALCIUM, TOTAL 9.6 mg/dL (8.8-10.5); CARBON DIOXIDE 26 mmol/L (22-29); CHLORIDE 103 mmol/L (98-107); GLOMERULAR FILTR. RATE CALC > 60 mL/min (>60); GLUCOSE,RANDOM 96 mg/dL (70-110); POTASSIUM 3.7 mmol/L (3.5-5.1); SODIUM SERUM 138 mmol/L (136-145); UREA NITROGEN, BLOOD 9 mg/dL (7-18)
[2021-05-17 23:23] LABS: ALANINE AMINOTRANSFERASE 20 U/L (12-78); ALBUMIN 4.4 g/dL (3.4-5.0); ALKALINE PHOSPHATASE 73 U/L (46-116); ASPARTATE AMINOTRANSFERASE 14 U/L (15-37); BILIRUBIN,TOTAL 0.6 mg/dL (0.1-1.0); TOTAL PROTEIN, SERUM 8.1 g/dL (6.4-8.2)
[2021-05-17 23:27] LABS: HCG,QUANTITATIVE 1 mIU/mL (0-6)
[2021-05-17 23:44] LABS: COVID AG,FIA SOURCE NASOPHARYNGEAL
[2021-05-17 23:48] LABS: APPEARANCE,URINE CLOUDY (CLEAR); BILIRUBIN,URINE NEGATIVE (NEGATIVE); GLUCOSE, URINE (UA) NEGATIVE (NEGATIVE); KETONES,URINE TRACE mg/dL (NEGATIVE); LEUKOCYTE ESTERASE ,URINE SMALL (NEGATIVE); NITRATE,URINE NEGATIVE (NEGATIVE); OCCULT BLOOD,URINE LARGE (NEGATIVE); PH,URINE 5.5 (5.0-8.0); PROTEIN,URINE POS 1+ (NEGATIVE); UROBILINOGEN,URINE 0.2 mg/dL (<=1.0)
[2021-05-17 23:53] LABS: CREATINE KINASE, TOTAL ONLY 54 U/L (26-192); FREE T4 (FREE THYROXINE) 1.24 ng/dL (0.76-1.46); THYROID STIMULATING HORMONE 1.31 uIU/mL (0.36-3.74)
[2021-05-18 00:03] LABS: BACTERIA,URINE Moderate /HPF (None Seen)
[2021-05-18 00:44] VITALS: BP 127/71
[2021-05-18] MEDS ORDERED: CEPHALEXIN MONOHYDRATE 500 MG CAPSULE PO ONE (00:45)
== END 2021-05-18 00:47 | disposition home or self-care (01) ==
LOC: EMS 22:24
DX: N39.0 Urinary tract infection, site not specified (principal); R05.9 Cough, unspecified; J45.909 Unspecified asthma, uncomplicated; F31.9 Bipolar disorder, unspecified; F20.9 Schizophrenia, unspecified; F17.210 Nicotine dependence, cigarettes, uncomplicated; F12.90 Cannabis use, unspecified, uncomplicated; Z20.822 Contact with and (suspected) exposure to COVID-19; Z90.89 Acquired absence of other organs; Z88.8 Allergy status to other drugs, medicaments and biological substances
CPT/HCPCS: 36415; 80053; 81001; 82550; 83735; 84439; 84443; 84702; 85025; 87086; 87426; 99284; G0480; Q0162

== ENCOUNTER 2021-06-24 12:44 | Emergency (ER) | payer OTHER ==
[~2021-06-24] VITALS: Ht 167.6 cm; Wt 89.5 kg
[2021-06-24] MEDS ORDERED: IBUPROFEN 600 MG TABLET PO ONE (14:00)
[2021-06-24] MEDS ORDERED: LIDOCAINE 1% 10 ML VIAL SQ ONE (14:00)
[2021-06-24] MEDS ORDERED: PERTUSS(ACELL),DIPH,TET VAC/PF 0.5 ML SYRINGE IM. ONE (14:00)
[2021-06-24] MEDS ORDERED: BACITRACIN 0.9 GM PACKET OINTMENT TP ONE (14:00)
[2021-06-24 15:36] VITALS: BP 132/81
== END 2021-06-24 15:38 | disposition home or self-care (01) ==
LOC: EMS 12:44
DX: S61.411A Laceration without foreign body of right hand, initial encounter (principal); F17.210 Nicotine dependence, cigarettes, uncomplicated; F12.90 Cannabis use, unspecified, uncomplicated; F31.9 Bipolar disorder, unspecified; F20.9 Schizophrenia, unspecified; X58.XXXA Exposure to other specified factors, initial encounter; Y93.89 Activity, other specified; Y92.89 Other specified places as the place of occurrence of the external cause; Y99.8 Other external cause status; Z90.49 Acquired absence of other specified parts of digestive tract
CPT/HCPCS: 12001; 73130; 90471; 90715; 99283; J3490

== ENCOUNTER 2021-08-17 22:10 | Emergency (ER) | payer OTHER ==
[~2021-08-17] VITALS: Ht 167.6 cm; Wt 86.4 kg
[2021-08-17] MEDS ORDERED: RINGERS SOLUTION,LACTATED 1,000 ML IV ONE (23:30)
[2021-08-17] MEDS ORDERED: FentaNYL CITRATE PF 100 MCG/2 ML VIAL IVP ONE (23:45)
[2021-08-18 00:46] LABS: ANION GAP 11 mmol/L (8-16); CARBON DIOXIDE 24 mmol/L (22-29); CHLORIDE 103 mmol/L (98-107); CREATININE 0.71 mg/dL (0.60-1.30); GLUCOSE,RANDOM 102 mg/dL (70-110); POTASSIUM 3.7 mmol/L (3.5-5.1); SODIUM SERUM 138 mmol/L (136-145); UREA NITROGEN, BLOOD 8 mg/dL (7-18)
[2021-08-18 00:47] LABS: CALCIUM, TOTAL 9.7 mg/dL (8.8-10.5); GLOMERULAR FILTR. RATE CALC > 60 mL/min (>60)
[2021-08-18 00:58] LABS: HCG,QUANTITATIVE < 1 mIU/mL (0-6)
[2021-08-18 01:02] LABS: BASOPHILS % (AUTO) 0.6 % (0.0-2.0); HEMATOCRIT 40.4 % (36-46); HEMOGLOBIN 13.4 g/dL (12.0-16.0); LYMPHOCYTES # (AUTO) 1.5 K/uL (1.0-4.8); LYMPHOCYTES % (AUTO) 12.8 % (22.0-44.0); MEAN CORPUSCULAR HEMOGLOBIN 28.4 pg (26.0-34.0); MEAN CORPUSCULAR HGB CONC 33.2 G/dL (31.0-37.0); MEAN CORPUSCULAR VOLUME 85 fL (80-100); MONOCYTES # (AUTO) 0.6 K/uL (0.1-1.0); NEUTROPHILS # (AUTO) 8.8 K/uL (1.8-7.7); NEUTROPHILS % (AUTO) 76.6 % (40.0-70.0); PLATELET COUNT (AUTO) 274 K/uL (150-450); RED BLOOD CELL COUNT(AUTO) 4.73 MIL/uL (4.00-5.20); RED CELL DISTRIBUTION WIDTH 13.7 % (11.5-14.5)
[2021-08-18 01:39] LABS: APPEARANCE,URINE CLEAR (CLEAR); BILIRUBIN,URINE NEGATIVE (NEGATIVE); GLUCOSE, URINE (UA) NEGATIVE (NEGATIVE); KETONES,URINE NEGATIVE (NEGATIVE); LEUKOCYTE ESTERASE ,URINE TRACE (NEGATIVE); NITRATE,URINE NEGATIVE (NEGATIVE); OCCULT BLOOD,URINE TRACE (NEGATIVE); PROTEIN,URINE NEGATIVE (NEGATIVE)
[2021-08-18] MEDS ORDERED: FentaNYL CITRATE PF 100 MCG/2 ML VIAL IVP ONE (01:45)
[2021-08-18] MEDS ORDERED: IOHEXOL 350 MG/ML 150 ML VIAL ONE (01:47)
[2021-08-18] MEDS ORDERED: SODIUM CHLORIDE 0.9% 100 ML ONE (01:47)
[2021-08-18 02:00] LABS: BACTERIA,URINE Rare /HPF (None Seen); RBC,URINE 0-2 /HPF (0-2); SQUAMOUS EPITHELIAL CELL,UR Moderate /LPF (None Seen); WBC,URINE 0-2 /HPF (0-5)
[2021-08-18] MEDS ORDERED: CefTRIAXone SODIUM 1 GM/VIAL IM ONE (02:45)
[2021-08-18] MEDS ORDERED: LIDOCAINE/PF 1% 2 ML VIAL IM ONE (02:45)
[2021-08-18] MEDS ORDERED: DOXYCYCLINE HYCLATE 100 MG TABLET PO ONE (02:45)
[2021-08-18] MEDS ORDERED: ONDANSETRON HCL 4 MG/2 ML VIAL IVP ONE (04:00)
[2021-08-18] MEDS ORDERED: METOCLOPRAMIDE HCL 5 MG/ML 2 ML VIAL IVP ONE (05:15)
[2021-08-18 06:15] VITALS: BP 118/68
[2021-08-19] MEDS ORDERED: METO5TAB87 PO (12:53)
== END 2021-08-18 06:20 | disposition home or self-care (01) ==
LOC: EMS 22:18
DX: N73.9 Female pelvic inflammatory disease, unspecified (principal); J45.909 Unspecified asthma, uncomplicated; F31.9 Bipolar disorder, unspecified; F20.9 Schizophrenia, unspecified; F17.210 Nicotine dependence, cigarettes, uncomplicated; F12.90 Cannabis use, unspecified, uncomplicated; Z20.822 Contact with and (suspected) exposure to COVID-19; Z90.89 Acquired absence of other organs; Z88.8 Allergy status to other drugs, medicaments and biological substances
CPT/HCPCS: 36415; 74177; 80048; 81001; 81003; 81025; 84702; 85025; 87210; 87491; 87591; 96361; 96372; 96374; 96375; 96376; 99285; J0696; J2405; J2765; J3010 ×2; J3490; J7050; J7120; Q9967

== ENCOUNTER 2021-08-19 08:01 | Emergency (ER) | payer OTHER ==
[~2021-08-19] VITALS: Ht 167.6 cm; Wt 86.4 kg
[2021-08-19 08:54] LABS: APPEARANCE,URINE TURBID (CLEAR); GLUCOSE, URINE (UA) NEGATIVE (NEGATIVE); KETONES,URINE TRACE mg/dL (NEGATIVE); LEUKOCYTE ESTERASE ,URINE SMALL (NEGATIVE); NITRATE,URINE NEGATIVE (NEGATIVE); OCCULT BLOOD,URINE TRACE (NEGATIVE); PROTEIN,URINE SEE CONFIRM (NEGATIVE)
[2021-08-19 08:55] LABS: BILIRUBIN,URINE PRELIM. POSITIVE (NEGATIVE)
[2021-08-19 08:55] LABS: BASOPHILS % (AUTO) 0.4 % (0.0-2.0); HEMATOCRIT 41.1 % (36-46); LYMPHOCYTES # (AUTO) 2.1 K/uL (1.0-4.8); MEAN CORPUSCULAR HEMOGLOBIN 29.2 pg (26.0-34.0); MEAN CORPUSCULAR VOLUME 86 fL (80-100); MONOCYTES # (AUTO) 0.6 K/uL (0.1-1.0); MONOCYTES % (AUTO) 5.5 % (2.0-9.0); NEUTROPHILS # (AUTO) 6.9 K/uL (1.8-7.7); NEUTROPHILS % (AUTO) 68.1 % (40.0-70.0); PLATELET COUNT (AUTO) 279 K/uL (150-450); RED BLOOD CELL COUNT(AUTO) 4.78 MIL/uL (4.00-5.20); RED CELL DISTRIBUTION WIDTH 13.9 % (11.5-14.5)
[2021-08-19] MEDS ORDERED: DiphenhydrAMINE HCL 50 MG/ML VIAL IVP ONE (09:00)
[2021-08-19] MEDS ORDERED: SODIUM CHLORIDE 0.9% 1,000 ML IV ONE (09:00)
[2021-08-19] MEDS ORDERED: METOCLOPRAMIDE HCL 5 MG/ML 2 ML VIAL IVP ONE (09:00)
[2021-08-19 09:03] LABS: RBC,URINE 0-2 /HPF (0-2); SULFOSALICYLIC ACID,URINE 3+ (Negative); WBC,URINE 0-2 /HPF (0-5)
[2021-08-19 09:04] LABS: BACTERIA,URINE None Seen /HPF (None Seen); CALCIUM OXALATE CRYSTALS,UR Many /LPF (None Seen); SQUAMOUS EPITHELIAL CELL,UR Moderate /LPF (None Seen)
[2021-08-19 09:12] LABS: CALCIUM, TOTAL 9.5 mg/dL (8.8-10.5); CARBON DIOXIDE 25 mmol/L (22-29); CHLORIDE 103 mmol/L (98-107); CREATININE 0.76 mg/dL (0.60-1.30); GLOMERULAR FILTR. RATE CALC > 60 mL/min (>60); GLUCOSE,RANDOM 123 mg/dL (70-110); UREA NITROGEN, BLOOD 12 mg/dL (7-18)
[2021-08-19 09:15] LABS: ANION GAP 12 mmol/L (8-16); POTASSIUM 3.2 mmol/L (3.5-5.1); SODIUM SERUM 140 mmol/L (136-145)
[2021-08-19 09:23] LABS: ALANINE AMINOTRANSFERASE 19 U/L (12-78); ALBUMIN 4.4 g/dL (3.4-5.0); ALKALINE PHOSPHATASE 84 U/L (46-116); ASPARTATE AMINOTRANSFERASE 12 U/L (15-37); BILIRUBIN,TOTAL 0.7 mg/dL (0.1-1.0); HCG,QUANTITATIVE < 1 mIU/mL (0-6); LIPASE 252 U/L (73-393); TOTAL PROTEIN, SERUM 8.3 g/dL (6.4-8.2)
[2021-08-19] MEDS ORDERED: METO5TAB87 PO (12:53)
[2021-08-19 12:56] VITALS: BP 126/88
== END 2021-08-19 13:18 | disposition home or self-care (01) ==
LOC: EMS 08:01
DX: R11.2 Nausea with vomiting, unspecified (principal); F31.9 Bipolar disorder, unspecified; J45.909 Unspecified asthma, uncomplicated; F20.9 Schizophrenia, unspecified; F12.90 Cannabis use, unspecified, uncomplicated; F17.210 Nicotine dependence, cigarettes, uncomplicated; Z88.8 Allergy status to other drugs, medicaments and biological substances
CPT/HCPCS: 36415; 80053; 81001; 83690; 84702; 85025; 96361; 96374; 96375; 99285; J1200; J2765; J7030; 81002

== ENCOUNTER 2021-08-22 08:59 | Emergency (ER) | payer OTHER ==
[~2021-08-22] VITALS: Ht 167.6 cm; Wt 86.3 kg
[~2021-08-22 08:59] MED LIST changes: +METO5TAB87 PO; -OLAN10TA74 PO
[2021-08-22 09:35] VITALS: BP 132/78
[2021-08-22] MEDS ORDERED: SODIUM CHLORIDE 0.9% 1,000 ML IV ONE (10:00)
[2021-08-22] MEDS ORDERED: LORazepam 2 MG/ML VIAL IVP ONE (10:00)
[2021-08-22] MEDS ORDERED: ONDANSETRON HCL 4 MG/2 ML VIAL IVP ONE (10:00)
[2021-08-22 10:10] LABS: BASOPHILS % (AUTO) 0.7 % (0.0-2.0); EOSINOPHILS % (AUTO) 3.2 % (1.0-6.0); HEMATOCRIT 38.1 % (36-46); LYMPHOCYTES # (AUTO) 1.3 K/uL (1.0-4.8); LYMPHOCYTES % (AUTO) 16.7 % (22.0-44.0); MEAN CORPUSCULAR HEMOGLOBIN 28.9 pg (26.0-34.0); MEAN CORPUSCULAR HGB CONC 34.2 G/dL (31.0-37.0); MEAN CORPUSCULAR VOLUME 85 fL (80-100); MONOCYTES # (AUTO) 0.5 K/uL (0.1-1.0); MONOCYTES % (AUTO) 5.9 % (2.0-9.0); NEUTROPHILS # (AUTO) 5.8 K/uL (1.8-7.7); NEUTROPHILS % (AUTO) 73.5 % (40.0-70.0); PLATELET COUNT (AUTO) 244 K/uL (150-450); RED BLOOD CELL COUNT(AUTO) 4.51 MIL/uL (4.00-5.20); RED CELL DISTRIBUTION WIDTH 13.4 % (11.5-14.5)
[2021-08-22] MEDS ORDERED: MAG HYDROX/AL HYDROX/SIMETH ES 30 ML SUSPENSION UDCUP PO ONE (10:15)
[2021-08-22 10:17] LABS: ANION GAP 13 mmol/L (8-16); CALCIUM, TOTAL 8.9 mg/dL (8.8-10.5); CARBON DIOXIDE 26 mmol/L (22-29); CHLORIDE 102 mmol/L (98-107); CREATININE 0.65 mg/dL (0.60-1.30); GLOMERULAR FILTR. RATE CALC > 60 mL/min (>60); GLUCOSE,RANDOM 92 mg/dL (70-110); POTASSIUM 3.1 mmol/L (3.5-5.1); SODIUM SERUM 141 mmol/L (136-145); UREA NITROGEN, BLOOD 6 mg/dL (7-18)
[2021-08-22 10:25] LABS: ALANINE AMINOTRANSFERASE 16 U/L (12-78); ALBUMIN 3.8 g/dL (3.4-5.0); ALKALINE PHOSPHATASE 70 U/L (46-116); ASPARTATE AMINOTRANSFERASE 12 U/L (15-37); BILIRUBIN,TOTAL 0.7 mg/dL (0.1-1.0); TOTAL PROTEIN, SERUM 7.1 g/dL (6.4-8.2)
== END 2021-08-22 13:01 | disposition home or self-care (01) ==
LOC: EMS 09:14
DX: R11.2 Nausea with vomiting, unspecified (principal); F12.90 Cannabis use, unspecified, uncomplicated; Z88.8 Allergy status to other drugs, medicaments and biological substances; Z79.899 Other long term (current) drug therapy
CPT/HCPCS: 36415; 80053; 85025; 96361; 96374; 96375; 99284; J2060; J2405; J7030

== ENCOUNTER 2022-01-24 18:49 | Emergency (ER) | payer OTHER ==
[~2022-01-24] VITALS: Ht 170.2 cm; Wt 88.6 kg
[2022-01-24 22:54] LABS: BASOPHILS % (AUTO) 0.4 % (0.0-2.0); EOSINOPHILS % (AUTO) 1.3 % (1.0-6.0); HEMATOCRIT 38.2 % (36-46); HEMOGLOBIN 12.8 g/dL (12.0-16.0); LYMPHOCYTES # (AUTO) 1.8 K/uL (1.0-4.8); LYMPHOCYTES % (AUTO) 19.2 % (22.0-44.0); MEAN CORPUSCULAR HEMOGLOBIN 28.9 pg (26.0-34.0); MEAN CORPUSCULAR HGB CONC 33.5 G/dL (31.0-37.0); MEAN CORPUSCULAR VOLUME 86 fL (80-100); MONOCYTES # (AUTO) 0.4 K/uL (0.1-1.0); MONOCYTES % (AUTO) 4.7 % (2.0-9.0); NEUTROPHILS # (AUTO) 6.9 K/uL (1.8-7.7); NEUTROPHILS % (AUTO) 74.4 % (40.0-70.0); PLATELET COUNT (AUTO) 238 K/uL (150-450); RED BLOOD CELL COUNT(AUTO) 4.44 MIL/uL (4.00-5.20); RED CELL DISTRIBUTION WIDTH 13.6 % (11.5-14.5)
[2022-01-24 23:05] LABS: ANION GAP 10 mmol/L (8-16); CARBON DIOXIDE 24 mmol/L (22-29); CHLORIDE 102 mmol/L (98-107); CREATININE 0.59 mg/dL (0.60-1.30); GLUCOSE,RANDOM 98 mg/dL (70-110); POTASSIUM 3.7 mmol/L (3.5-5.1); SODIUM SERUM 136 mmol/L (136-145); UREA NITROGEN, BLOOD 6 mg/dL (7-18)
[2022-01-24 23:06] LABS: GLOMERULAR FILTR. RATE CALC > 60 mL/min (>60)
[2022-01-24 23:11] LABS: APPEARANCE,URINE HAZY (CLEAR); BILIRUBIN,URINE NEGATIVE (NEGATIVE); GLUCOSE, URINE (UA) NEGATIVE (NEGATIVE); KETONES,URINE NEGATIVE (NEGATIVE); LEUKOCYTE ESTERASE ,URINE TRACE (NEGATIVE); NITRATE,URINE NEGATIVE (NEGATIVE); OCCULT BLOOD,URINE LARGE (NEGATIVE); PROTEIN,URINE 100-200,SEE CONFIRM mg/dL (NEGATIVE); UROBILINOGEN,URINE <=1.0 mg/dL (<=1.0)
[2022-01-24 23:17] LABS: ALANINE AMINOTRANSFERASE 25 U/L (12-78); ALBUMIN 3.8 g/dL (3.4-5.0); ALKALINE PHOSPHATASE 65 U/L (46-116); ASPARTATE AMINOTRANSFERASE 20 U/L (15-37); BILIRUBIN,TOTAL 0.4 mg/dL (0.1-1.0); HCG,QUANTITATIVE 109 mIU/mL (0-6); LIPASE 67 U/L (73-393); TOTAL PROTEIN, SERUM 7.2 g/dL (6.4-8.2)
[2022-01-24 23:31] LABS: SULFOSALICYLIC ACID,URINE 1+ (Negative)
[2022-01-24 23:32] LABS: BACTERIA,URINE None Seen /HPF (None Seen); SQUAMOUS EPITHELIAL CELL,UR Few /LPF (None Seen); WBC,URINE 0-2 /HPF (0-5)
[2022-01-24 23:33] LABS: AMORPHOUS SEDIMENT,UR Few /LPF (None Seen); MUCUS,URINE Few LPF (None Seen)
[2022-01-25] MEDS ORDERED: ACETAMINOPHEN 500 MG TABLET PO ONE (00:30)
[2022-01-25] MEDS ORDERED: DiphenhydrAMINE HCL 50 MG CAPSULE PO ONE (02:45)
[2022-01-25 05:00] VITALS: BP 122/65
== END 2022-01-25 05:00 | disposition home or self-care (01) ==
LOC: EMS 18:59
DX: O20.0 Threatened abortion (principal); F25.9 Schizoaffective disorder, unspecified; Z79.899 Other long term (current) drug therapy; Z88.8 Allergy status to other drugs, medicaments and biological substances; Z3A.08 8 weeks gestation of pregnancy
CPT/HCPCS: 76801; 76817; 80053; 81001; 81002; 83690; 84702; 85025; 86901; 99284

== ENCOUNTER 2023-01-01 07:38 | Emergency (ER) | payer OTHER ==
[~2023-01-01] VITALS: Ht 170.2 cm; Wt 88.6 kg
[~2023-01-01 07:38] MED LIST changes: +PROM25TA PO
[2023-01-01 07:41] VITALS: TEMP 98.5
[2023-01-01] MEDS ORDERED: LIDOCAINE 1% 10 ML VIAL SQ ONE (08:00)
[2023-01-01 08:01] VITALS: BP 125/75; PULSE 80; RESP 18
== END 2023-01-01 08:29 | disposition home or self-care (01) ==
LOC: EMS 07:38
DX: S61.011A Laceration without foreign body of right thumb without damage to nail, initial encounter (principal); F12.90 Cannabis use, unspecified, uncomplicated; Z90.49 Acquired absence of other specified parts of digestive tract; Z98.890 Other specified postprocedural states; W26.8XXA Contact with other sharp object(s), not elsewhere classified, initial encounter; Y93.89 Activity, other specified; Y92.89 Other specified places as the place of occurrence of the external cause; Y99.8 Other external cause status
CPT/HCPCS: 99282; 12001; J3490